=== PATIENT | male | born 1965 | race Caucasian/White ===

== ENCOUNTER 2020-03-08 14:45 | Outpatient (RCR) | payer OTHER ==
[~2020-03-08 14:45] MED LIST: CIPR-17 PO; DILT240T6 PO; HYDR-3583 PO; LANS30CA PO; METR500T PO; MTF500T PO
== END 2020-03-08 16:19 | disposition home or self-care (01) ==
PROVIDERS: ATTEND Physical Medicine & Rehabilitation
DX: M54.2 Cervicalgia (principal); G89.29 Other chronic pain